=== PATIENT | male | born 2000 | race Caucasian/White ===

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

== ENCOUNTER 2020-07-26 15:09 | Emergency (ER) | payer OTHER ==
[~2020-07-26] VITALS: Ht 182.9 cm; Wt 87.0 kg
[2020-07-26 15:09] VITALS: BP 127/76
[~2020-07-26 15:09] MED LIST: METH-38 PO; NAPR275T59 PO
[2020-07-26] MEDS ORDERED: LIDOCAINE 1% Multi-Dose 20 ML VIAL. IJ ONE (15:30)
[2020-07-26] MEDS ORDERED: DIPH,PERTUSS(ACELL),TET VAC/PF 0.5 ML SYRINGE. VAX IM ONE (15:30)
--- NOTE | 2020-07-26 15:31 | PHYS DOC ---
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 No nail bed damage. Now is not intact. Patient is going to be given a tetanus shot as he does not remember when his last tetanus shot was. He denies any pain at this time. Upon arrival to the emergency room the wound is cleaned with soap and water. Patient's only history is smoking. ([facility]) Review of Systems Review of Systems Constitutional: Denies fever or chills [] Eyes: Denies change in visual acuity, redness, or eye pain [] HENT: Denies nasal congestion or sore throat [] Respiratory: Denies cough or shortness of breath [] Cardiovascular: No additional information not addressed in HPI [] GI: Denies abdominal pain, nausea, vomiting, bloody stools or diarrhea [] : Denies dysuria or hematuria [] Musculoskeletal: Denies back pain or joint pain. + Left index finger pain [] Integument: Denies rash or skin lesions. + Left index fingertip laceration [] Neurologic: Denies headache, focal weakness or sensory changes [] Endocrine: Denies polyuria or polydipsia [] All other systems were reviewed and found to be within normal limits, except as documented in this note. ([facility] Allergies Allergies Allergies Coded Allergies Type Severity Reaction Last Updated Verified No Known Drug Allergies 03/08/17 No ([facility] Physical Exam Physical Exam Constitutional: Well developed, well nourished, no acute distress, non-toxic appearance. [] HENT: Normocephalic, atraumatic, bilateral external ears normal, oropharynx moist, no oral exudates, nose normal. [] Eyes: PERRLA, EOMI, conjunctiva normal, no discharge. [] Neck: Normal range of motion, no tenderness, supple, no stridor. [] Cardiovascular:Heart rate regular rhythm, no murmur [] Lungs & Thorax: Bilateral breath sounds clear to auscultation [] Abdomen: Bowel sounds normal, soft, no tenderness, no masses, no pulsatile masses. [] Skin: Warm, dry, no erythema, no rash. Left medial side of the tip of the index finger laceration with edges approximated and together. [] Back: No tenderness, no CVA tenderness. [] Extremities: Left index finger tenderness, no cyanosis, no clubbing, ROM intact, 1+ edema. [] Neurologic: Alert and oriented X 3, normal motor function, normal sensory function, no focal deficits noted. [] Psychologic: Affect normal, judgement normal, mood normal. [] ([facility]) EKG EKG [] ([facility] APR[facility]) Radiology/Procedures Radiology/Procedures [] Impressions: [place] [address] IMAGING REPORT Signed PATIENT: JR WOODALL ACCOUNT: [id number] : 2000 LOCATION: ER AGE: 19 SEX: M EXAM STATUS: PRE ER ORD. PHYSICIAN: [facility] APRN REASON: Left 2nd finger tip laceration, pain PROCEDURE: HAND LEFT 3V EXAM: Left hand, 3 views. HISTORY: Laceration. COMPARISON: None. FINDINGS: 3 views of the left hand are obtained. There is no fracture, dislocation or subluxation. The alignment and joint spaces are unremarkable. No radiodense foreign body is seen. IMPRESSION: No acute osseous finding. Electronically signed by: Cecilia Cook MD (07/26/2020 3:38 PM) [id number] DICTATED AND SIGNED BY: CECILIA COOK MD DATE: 07/26/20 1538 CC: [facility] APRN; PCP,NO ~MTH0 0 ([facility]) Heart Score C/O Chest Pain: No Risk Factors: Risk Factors: DM, Current or recent (<one month) smoker, HTN, HLP, family history of CAD, obesity. Risk Scores: Risk Factors: DM, Current or recent (<one month) smoker, HTN, HLP, family his tory of CAD, obesity. ([facility]) Course & Med Decision Making Course & Med Decision Making Pertinent Labs and Imaging studies reviewed. (See chart for details) See HPI. Alert and oriented x4. Skin pink warm and dry. Radial pulses strong and present. Cap refill less than 2 seconds. No nailbed injury. Patient can still bend the index finger at all joints without laxity or complication. Bleeding is controlled. Patient to watch for signs and symptoms of infection. He is to return in 48 hours if there are any signs of infection or for wound check. Patient is educated sutures need to be removed in 10 days. Indication: Left medial, rounded tip of index finger laceration approximately 1 cm Procedure: The patient was placed in the appropriate position and anesthesia around the left index finger tip with 1% lidocaine. The area was then chlorhexidine and saline. The laceration was sutured with 4 sutures using 5-0. The wound area was then dressed with nonstick dressing and Kerlix. Total repaired wound length: 1 cm. Other Items: The patient tolerated the procedure very well. Complications: No complications. Patient tolerated well. [] ([facility]) Course & Med Decision Making I oversaw on the above date of service of this patient and discussed the care with the INTERPRETIVE NATURALIST. I agree with the findings, plan of care, and disposition as documented. Electronically signed, Bonnie Soto DO (BONNIE SOTO DO) Ricky Disclaimer Ricky Disclaimer This electronic medical record was generated, in whole or in part, using a voice recognition dictation system. ([facility]) Departure Departure: Impression: Primary Impression: Laceration Disposition: 01 DC HOME SELF CARE/HOMELESS Condition: STABLE Referrals: PCP,NO (PCP) Patient Instructions: Fingertip Laceration, Laceration Care, Adult Additional Instructions: Follow-up with primary care provider if needed. Your sutures need to be removed in 10 days. Watch for redness and swelling or increased pain or drainage and if you see these things return to the emergency room. Take ibuprofen for any pain. When you are at work keep it covered and clean at all times. SAMEER JOHNSON APRN Jul 26, 2020 15:30 BONNIE SOTO DO Jul 27, 2020 06:50
--- NOTE | 2020-07-26 15:41 | RAD ---
EXAM: Left hand, 3 views. HISTORY: Laceration. COMPARISON: None. FINDINGS: 3 views of the left hand are obtained. There is no fracture, dislocation or subluxation. Th e alignment and joint spaces are unremarkable. No radiodense foreign body is seen. IMPRESSION: No acute osseous finding. Electronically signed by: Cecilia Sher MD (07/26/2020 3:38 PM) [id number]
== END 2020-07-26 16:00 | disposition home or self-care (01) ==
LOC: ER 15:09
DX: S61.211A Laceration without foreign body of left index finger without damage to nail, initial encounter (principal); F17.210 Nicotine dependence, cigarettes, uncomplicated; W26.0XXA Contact with knife, initial encounter; Y93.89 Activity, other specified; Y92.89 Other specified places as the place of occurrence of the external cause; Y99.8 Other external cause status
CPT/HCPCS: 12001; 73130; 90471; 90715; 99283

== ENCOUNTER 2020-08-07 10:14 | Emergency (ER) | payer OTHER ==
[~2020-08-07] VITALS: Ht 182.9 cm; Wt 87.0 kg
--- NOTE | 2020-08-07 10:40 | PHYS DOC ---
Past History Past Medical History: No Pertinent History Past Surgical History: No Surgical History Smoking: Cigarettes Alcohol Use: None Drug Use: None General Adult EDM: Chief Complaint: SUTURE/STAPLE REMOVAL HPI: HPI: 19-year-old male who denies any significant past medical history presents the ED for suture removal status post accidental finger laceration on 07/26 with a potato cutter at work, repaired with 4 subcutaneous sutures to left second index finger distal tip. Patient reports no repeat injury. No associated rash, decreased range of motion, purulent drainage, bleeding or persistent pain. Review of Systems: Review of Systems: Constitutional: Denies fever or chills Eyes: Denies change in visual acuity HENT: Denies nasal congestion or sore throat Respiratory: Denies cough or shortness of breath Cardiovascular: Denies chest pain or edema GI: Denies abdominal pain, nausea, vomiting, bloody stools or diarrhea : Denies dysuria Musculoskeletal: Denies back pain or joint pain Integument: Denies rash Neurologic: Denies headache, focal weakness or sensory changes Endocrine: Denies polyuria or polydipsia Lymphatic: Denies swollen glands Psychiatric: Denies depression or anxiety Allergies: Allergies: Allergies Coded Allergies Type Severity Reaction Last Updated Verified No Known Drug Allergies 03/08/17 No Physical Exam: PE: Constitutional: Well developed, well nourished, no acute distress, non-toxic appearance. HENT: Normocephalic, atraumatic, Eyes: EOMI, conjunctiva normal, no discharge. Neck: Normal range of motion, supple, Cardiovascular: S1/2 present, regular rhythm Lungs & Thorax: Speaking in full sentences, bilateral equal chest rise, no tachypnea or increased work of breathing Skin: Warm, dry, no erythema, no rash. [] Extremities: No cyanosis, no rash, 4 sutures over ulnar aspect of fingertip with no wound dehiscence or fingernail involvement, no subungual hematoma, FROM L 2nd DIP/PIP joints, no digital swelling/erthema/flexion posturing, cap refill less than 1 second, old bruising under laceration repair site Neurologic: Alert and oriented X 3, normal motor function, normal sensory function, no focal deficits noted. [] Psychologic: Affect normal, judgement normal, mood normal. [] EKG: EKG: [] Radiology/Procedures: Radiology/Procedures: [] Heart Score: C/O Chest Pain: No Risk Factors: Risk Factors: DM, Current or recent (<one month) smoker, HTN, HLP, family histo ry of CAD, obesity. Risk Scores: Score 0 - 3: 2.5% MACE over next 6 weeks - Discharge Home Score 4 - 6: 20.3% MACE over next 6 weeks - Admit for Clinical Observation Score 7 - 10: 72.7% MACE over next 6 weeks - Early Invasive Strategies Course & Med Decision Making: Course & Med Decision Making Pertinent Labs and Imaging studies reviewed. 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 Total of 4 sutures easily removed with no wound dehiscence, signs of infection or bleeding. Appropriate healing fingertip laceration repair-minimal bruising underneath the laceration site. Will discharge home with strict ED return precautions were given for neurologic deficits, rash, decreased range of motion or severe pain. Encouraged urgent outpatient follow-up with PMD and hand surgery for definitive management. Life- threatening processes were considered but are low suspicion at this time, given history, physical exam and ED workup. Pt was educated on all prescription medications and adverse effects. All patient's questions were answered and pt was stable at time of discharge. Life/limb-threatening differential includes but is not limited to, trauma (fracture, dislocation, laceration, compartment syndrome, tendon or ligament injury), neurovascular injury or deficitcva/tia, infection (osteomyelitis, abscess, cellulitis, septic arthritis, necrotizing fasciitis), deep vein thrombosis, renal/cardiac/liver disease, medication adverse effect, lymphedema/anasarca, vascular insufficiency or malignancy, I spoken with the patient and her caregivers. I explained the patient's condition, diagnoses and treatment plan based on the information available to me at this time. I have answered the patient and her caregiver's questions and addressed any concerns. The patient and her caregivers have a good understanding of patient's diagnosis, condition and treatment plan as can be expected at this point. Vital signs have been stable. Patient's condition is stable and appropriate for discharge from the emergency department. Patient will pursue further outpatient evaluation with primary care physician or other designated or consulting physician as outlined in the discharge instructions. The patient and/or caregivers are agreeable to this plan of care and follow-up instructions have been explained in detail. The patient and/or caregivers have received these instructions in written form and have expressed an understanding of the discharge instructions. The patient and/or caregivers are aware that any significant change of condition or worsening of symptoms should prompt immediate return to this or the closest emergency department or call to [id number] García Disclaimer: Ricky Disclaimer: This electronic medical record was generated, in whole or in part, using a voice recognition dictation system. Departure Departure: Impression: Primary Impression: Encounter for removal of sutures Disposition: 01 DC HOME SELF CARE/HOMELESS Condition: STABLE Referrals: PCP,NO (PCP) FOLLOW UP WITH FAMILY MEDICINE: [employer] [facility] [address] [place] [address], [facility] Instructions: Suture Removal, Sutured Wound Care Additional Instructions: [facility] for definitive management Appointments may be made with Teddy Elkins MD, Armand Long MD, Jordan Dooley MD or Diogo Buck MD, by calling [phone] EMERGENCY DEPARTMENT GENERAL DISCHARGE INSTRUCTIONS Thank you for coming to [facility] (ED) today and trusting us with you care. We trust that you had a positivie experience in our Emergency Department. If you wish to speak to the department management, you may call the director at [phone]. YOUR FOLLOW UP INSTRUCTIONS ARE FOLLOWS: 1. Do you have a private Doctor? If you do not have a private doctor, please ask for a resource list of physicians or clinics that may be able to assist you with follow up care. 2. The Emergency Physician has interpreted your x-rays. The X-Ray specialist will also review them. If there is a change in the findings, you will be notified in 48 hours when at all possible. 3. A lab test or culture has been done, your results will be reviewed and you will be notified if you need a change in treatment. ADDITIONAL INSTRUCTIONS AND INFORMATION: 1. Your care today has been supervised by a physician who is specially trained in emergency care. Many problems require more than one evaluation for a complete diagnosis and treatment. We recommend that you schedule your follow up appointment as recommended to ensure complete treatment of you illness or injury. If you are unable to obtain follow up care and continue to have a problem, or if your condition worsens, we recommend that you return to the ED. 2. We are not able to safely determine your condition over the phone nor are we able to give sound medical advice over the phone. For these safety reasons, if you call for medical advice we will ask you to come to the ED for further evaluation. 3. If you have any questions regarding these discharge instructions please call the ED at [phone]. SAFETY INFORMATION: In the interest of safety, wellness, and injury prevention; we encourage you to wear your sealbelt, if you smoke; quite smoking, and we encourage family to use a protective helmet for bicycling and other sporting events that present an increased risk for head injury. IF YOUR SYMPTOMS WORSEN OR NEW SYMPTOMS DEVELOP, OR YOU HAVE CONCERNS ABOUT YOUR CONDITION; OR IF YOUR CONDITION WORSENS WHILE YOU ARE WAITING FOR YOUR FOLLOW UP APPOINTMENT; EITHER CONTACT YOUR PRIMARY CARE DOCTOR, THE PHYSICIAN WHOSE NAME AND NUMBER YOU WERE GIVEN, OR RETURN TO THE ED IMMEDIATELY. LEDA HERNANDEZ DO Aug 07, 2020 10:40
[2020-08-07 10:45] VITALS: BP 121/76
== END 2020-08-07 10:51 | disposition home or self-care (01) ==
LOC: ER 10:14
DX: S61.211D Laceration without foreign body of left index finger without damage to nail, subsequent encounter (principal); F17.210 Nicotine dependence, cigarettes, uncomplicated; X58.XXXD Exposure to other specified factors, subsequent encounter
CPT/HCPCS: 99281